=== PATIENT | male | born 1960 | race Asian ===

== ENCOUNTER 2018-07-10 14:03 | Inpatient (IN) | payer OTHER ==
[~2018-07-10] VITALS: Ht 170.2 cm; Wt 100.6 kg
[2018-07-10] MEDS ORDERED: SODIUM CHLORIDE 0.9% 1,000 ML IV ONE (14:24)
[2018-07-10] MEDS ORDERED: MECLIZINE CHEWABLE 25 MG TAB ONE (14:26)
[2018-07-10] MEDS ORDERED: DEXAMETHASONE 4 MG/ML, 5ML ONE (14:26)
[2018-07-10] MEDS ORDERED: ONDANSETRON 2MG/ML, 2ML ONE (14:26)
[2018-07-10] MEDS ORDERED: MECLIZINE CHEWABLE 25 MG TAB PO ONE (14:30)
[2018-07-10] MEDS ORDERED: DEXAMETHASONE 4 MG/ML, 1ML IVPush ONE (14:30)
[2018-07-10] MEDS ORDERED: ONDANSETRON 2MG/ML, 2ML IVPush ONE (14:30)
[2018-07-10] MEDS ORDERED: SODIUM CHLORIDE FLUSH 10ML SYR IVF ONE (14:30)
--- NOTE | 2018-07-10 14:41 | NUR ---
PT MEDICATED WITH ZOFRAN, DECADRON AND MECLIZINE. IVF RUNNING.
[2018-07-10 14:51] LABS: BASOPHILS # (AUTO) 0.03 x10^3/uL (0-0.1); BASOPHILS % (AUTO) 0 % (0-1); EOSINOPHILS # (AUTO) 0.08 x10^3/uL (0-0.4); EOSINOPHILS % (AUTO) 1 % (1-7); LYMPHOCYTES # (AUTO) 1.48 x10^3/uL (1-3.4); LYMPHOCYTES % (AUTO) 12 % (22-44); MD NO; MEAN CORPUSCULAR HEMOGLOBIN 31.6 pg (27.5-34.5); MEAN CORPUSCULAR HGB CONC 33.4 g/dL (33.2-36.2); MEAN CORPUSCULAR VOLUME 94.6 fL (81-97); MEAN PLATELET VOLUME 8.5 fL (7.4-10.4); MONOCYTES # (AUTO) 0.54 x10^3/uL (0.2-0.8); MONOCYTES % (AUTO) 4 % (2-9); NEUTROPHILS # (AUTO) 10.63 x10^3/uL (1.8-6.8); NEUTROPHILS % (AUTO) 83 % (42-75); PLATELET COUNT 198 x10^3/uL (130-400); RED BLOOD COUNT 5.65 x10^6/uL (4.38-5.82); RED CELL DISTRIBUTION WIDTH 13.9 % (9.4-14.8)
[2018-07-10 15:00] LABS: ALBUMIN 4.2 g/dL (3.4-5.0); ANION GAP 13 mmol/L (5-15); CALCIUM 9.7 mg/dL (8.5-10.1); CHLORIDE 108 mmol/L (98-107); CREATININE 1.52 mg/dL (0.7-1.3)
--- NOTE | 2018-07-10 15:10 | NUR ---
PT C/O PAIN AT IV SITE. MILD SWELLING AND FIRMNESS NOTED ABOVE INSERTION SITE, APPEARS INFILTRATED. IV DISCONTINUED AND WARM COMPRESS APPLIED.
--- NOTE | 2018-07-10 15:12 | NUR ---
PT TO MRI.
[2018-07-10] MEDS ORDERED: METOCLOPRAMIDE 5 MG/ML, 2ML ONE (15:42)
[2018-07-10] MEDS ORDERED: METOCLOPRAMIDE 5 MG/ML, 2ML IVPush ONE (16:00)
[2018-07-10] MEDS ORDERED: SUMATRIPTAN 6MG/0.5ML SQ ONE (16:25)
--- NOTE | 2018-07-10 16:29 | NUR ---
PATIENT MEDICATED WITH LABETALOL 20MG IVP FOR HTN. WILL CONTINUE TO MONITOR. PT RESTING WITH NO COMPLAINTS.
[2018-07-10] MEDS ORDERED: ONDANSETRON 2MG/ML, 2ML IVPush PRN (16:30)
[2018-07-10] MEDS ORDERED: hydrALAzine 20 MG/ML, 1ML IVPush PRN (16:30)
[2018-07-10] MEDS ORDERED: BUTALB/APAP/CAFFEINE 50MG/325MG/40MG PO PRN (16:30)
[2018-07-10] MEDS ORDERED: LABETALOL 5MG/ML, 20ML IVPush ONE (16:30)
--- NOTE | 2018-07-10 16:47 | NUR ---
[facility] TELEPHONE HAND-OFF REPORT GIVEN TO EDD SOARES.
[2018-07-10 17:25] LABS: FREE T4 (FREE THYROXINE) 1.25 ng/dL (0.76-1.46); THYROID STIMULATING HORMONE 0.782 mIU/L (0.358-3.740)
[2018-07-10 17:58] LABS: HCT (SEDRATE) 49.3 % (39.2-51.8)
[2018-07-10] MEDS: DEXAMETHASONE 4 MG TABLET PO SCH (18:06)
[2018-07-10] MEDS: SODIUM CHLORIDE 0.9% 1,000 ML IV SCH (18:07)
[2018-07-10 18:43] LABS: HEMOGLOBIN A1C 5.9 % (4.2-6.3)
[2018-07-10 19:21] VITALS: BP 148/101
[2018-07-10] MEDS: INSULIN LISPRO 100 UNITS/ML, PEN SQ-INSULIN SCH (21:07)
[2018-07-10] MEDS: PANTOPRAZOLE 20MG TABLET PO SCH (21:10)
[2018-07-10] MEDS: MECLIZINE CHEWABLE 25 MG TAB PO SCH (21:11)
[2018-07-10 21:13] VITALS: BP 152/100
[2018-07-11] VITALS (7 sets, daily range): BP systolic 152–188; BP diastolic 83–130
[2018-07-11] MEDS: SODIUM CHLORIDE 0.9% 1,000 ML IV SCH ×2 (02:28→08:39)
[2018-07-11] MEDS: PANTOPRAZOLE 20MG TABLET PO SCH ×2 (05:13→23:14)
[2018-07-11 05:41] LABS: CHLORIDE 111 mmol/L (98-107)
[2018-07-11 05:53] LABS: ANION GAP 10 mmol/L (5-15); CALCIUM 9.3 mg/dL (8.5-10.1); CHOL/HDL RATIO 3.8; CHOLESTEROL, TOTAL 195 mg/dL (140-239); CREATININE 1.22 mg/dL (0.7-1.3); HDL CHOL % 26 % (26-37); HDL CHOLESTEROL (DIRECT) 51 mg/dL (40-60); LDL CHOLESTEROL,CALCULATED 131 mg/dL (54-169); LDL/HDL RATIO 2.6 (0.5-3.0); TRIGLYCERIDES 65 mg/dL (50-200); VLDL CHOLESTEROL 13 mg/dL (0-25)
[2018-07-11 05:55] LABS: BASOPHILS % (AUTO) 0 % (0-1); EOSINOPHILS % (AUTO) 0 % (1-7); LYMPHOCYTES # (AUTO) 0.71 x10^3/uL (1-3.4); LYMPHOCYTES % (AUTO) 7 % (22-44); MD NO; MEAN CORPUSCULAR HEMOGLOBIN 32.2 pg (27.5-34.5); MEAN CORPUSCULAR HGB CONC 34.3 g/dL (33.2-36.2); MEAN CORPUSCULAR VOLUME 93.8 fL (81-97); MEAN PLATELET VOLUME 8.8 fL (7.4-10.4); MONOCYTES # (AUTO) 0.18 x10^3/uL (0.2-0.8); MONOCYTES % (AUTO) 2 % (2-9); NEUTROPHILS # (AUTO) 9.09 x10^3/uL (1.8-6.8); NEUTROPHILS % (AUTO) 91 % (42-75); PLATELET COUNT 250 x10^3/uL (130-400); RED BLOOD COUNT 5.25 x10^6/uL (4.38-5.82); RED CELL DISTRIBUTION WIDTH 13.9 % (9.4-14.8)
[2018-07-11] MEDS: INSULIN LISPRO 100 UNITS/ML, PEN SQ-INSULIN SCH ×4 (07:45→23:14)
[2018-07-11] MEDS: MECLIZINE CHEWABLE 25 MG TAB PO SCH ×3 (08:37→23:14)
[2018-07-11] MEDS: DEXAMETHASONE 4 MG TABLET PO SCH ×3 (08:37→17:12)
[2018-07-11] MEDS ORDERED: SUMATRIPTAN 6MG/0.5ML SQ ONE (09:30)
[2018-07-11] MEDS ORDERED: NITROGLYCERIN 0.4 MG BOTTLE (25 TABS) SL ONE (09:47)
[2018-07-11] MEDS ORDERED: MORPHINE SULFATE 4 MG/ML, 1ML ONE (09:49)
[2018-07-11] MEDS ORDERED: NITROGLYCERIN SINGLE TAB 0.4 MG SL PRN (10:00)
[2018-07-11] MEDS ORDERED: MORPHINE SULFATE 4 MG/ML, 1ML IVPush PRN (10:00)
[2018-07-11 11:11] LABS: TROPONIN I < 0.015 ng/mL (0.000-0.045)
[2018-07-11] MEDS: METOPROLOL TARTRATE 50 MG TABLET PO SCH (18:20)
[2018-07-12 04:22] VITALS: BP 139/88
[2018-07-12 06:07] LABS: HCT (SEDRATE) 49.5 % (39.2-51.8)
[2018-07-12 06:15] VITALS: BP 135/89
[2018-07-12 06:15] LABS: ANION GAP 9 mmol/L (5-15); CALCIUM 9.2 mg/dL (8.5-10.1); CHLORIDE 110 mmol/L (98-107)
[2018-07-12 06:16] LABS: C-REACTIVE PROTEIN, QUANT 0.14 mg/dL (0.02-0.49); CREATININE 1.13 mg/dL (0.7-1.3)
[2018-07-12] MEDS: PANTOPRAZOLE 20MG TABLET PO SCH (06:17)
[2018-07-12] MEDS: METOPROLOL TARTRATE 50 MG TABLET PO SCH (06:17)
[2018-07-12] MEDS: INSULIN LISPRO 100 UNITS/ML, PEN SQ-INSULIN SCH ×2 (07:00→11:00)
[2018-07-12 07:43] LABS: BASOPHILS % (AUTO) 0 % (0-1); EOSINOPHILS % (AUTO) 0 % (1-7); LYMPHOCYTES # (AUTO) 1.13 x10^3/uL (1-3.4); LYMPHOCYTES % (AUTO) 6 % (22-44); MD SCAN; MEAN CORPUSCULAR HEMOGLOBIN 31.8 pg (27.5-34.5); MEAN CORPUSCULAR HGB CONC 33.4 g/dL (33.2-36.2); MEAN CORPUSCULAR VOLUME 95.4 fL (81-97); MEAN PLATELET VOLUME 9.5 fL (7.4-10.4); MONOCYTES # (AUTO) 0.47 x10^3/uL (0.2-0.8); MONOCYTES % (AUTO) 3 % (2-9); NEUTROPHILS % (AUTO) 91 % (42-75); PLATELET COUNT 217 x10^3/uL (130-400); RED BLOOD COUNT 5.43 x10^6/uL (4.38-5.82); RED CELL DISTRIBUTION WIDTH 13.9 % (9.4-14.8)
[2018-07-12 07:59] VITALS: BP 132/97
[2018-07-12] MEDS: MECLIZINE CHEWABLE 25 MG TAB PO SCH (08:32)
[2018-07-12] MEDS: DEXAMETHASONE 4 MG TABLET PO SCH ×2 (08:32→11:34)
[2018-07-12] MEDS ORDERED: FAMO-79 PO (10:37)
[2018-07-12] MEDS ORDERED: METO50TA82 PO (10:37)
[2018-07-12] MEDS ORDERED: MECL-85 PO (10:37)
[2018-07-12] MEDS ORDERED: HYDR-3343 PO (10:37)
[2018-07-12 11:33] VITALS: BP 144/96
[2018-07-12 14:00] VITALS: BP 132/87
[2018-07-12] MEDS ORDERED: SODIUM CHLORIDE 0.9% 1,000 ML IV SCH (16:30)
== END 2018-07-12 15:30 | disposition home or self-care (01) | DRG 103 ==
LOC: ED 15:50 → EDIP 15:55 → ED 16:16 → 4EST 17:17
PROVIDERS: ADMIT Hospitalist; ATTEND Hospitalist
DX: G43.909 Migraine, unspecified, not intractable, without status migrainosus (principal); N17.9 Acute kidney failure, unspecified; H55.09 Other forms of nystagmus; H81.22 Vestibular neuronitis, left ear; I10 Essential (primary) hypertension; K21.9 Gastro-esophageal reflux disease without esophagitis; Z91.19 Patient's noncompliance with other medical treatment and regimen; Z87.891 Personal history of nicotine dependence
CPT/HCPCS: 36415; 70551; 80048; 80061; 82040; 82962; 83036; 84439; 84443; 84484; 85025; 85651; 86140; 93005; 96372; 96374; 96375; 99285; G0378; J1100; J2405; J0360; J1815; J2765; J3030; J7030